=== PATIENT | female | born 1940 | race Caucasian/White ===

== ENCOUNTER → 2024-08-30 | Emergency (ER) | payer MEDICARE, BC ==
[~2024-08-30] VITALS: Ht 167.6 cm; Wt 71.8 kg
[2024-08-30 07:40] VITALS: TEMP 98
[2024-08-30 09:20] VITALS: BP 156/75; PULSE 74; RESP 17; O2SAT 97
== END | disposition home or self-care (01) ==
LOC: ER 07:39
DX: R60.0 Localized edema (principal)
CPT/HCPCS: 93005; 93971; 99284